=== PATIENT | female | born 1995 | race African-American/Black ===

== ENCOUNTER 2025-08-10 16:24 | Emergency (ER) | payer OTHER ==
[2025-08-10 16:31] VITALS: BP 126/82; PULSE 82; RESP 20; TEMP 98.1; BMI 37.9
[2025-08-10] MEDS ORDERED: IBUPROFEN 600 MG TABLET (FP) PO ONE (17:00)
[2025-08-10] MEDS: IBUPROFEN 600 MG TABLET (FP) PO ONE (17:03)
== END 2025-08-10 17:37 | disposition home or self-care (01) ==
LOC: JERFT 16:24
DX: M62.838 Other muscle spasm (principal); M54.2 Cervicalgia; V89.2XXA Person injured in unspecified motor-vehicle accident, traffic, initial encounter
CPT/HCPCS: 99283-25